=== PATIENT | female | born 1990 | race Caucasian/White ===

== ENCOUNTER 2017-05-21 12:28 | Emergency (ER) | payer MEDICAID, OTHER ==
[~2017-05-21] VITALS: Ht 160 cm; Wt 50.0 kg
[2017-05-21 17:50] VITALS: BP 118/67
[2017-05-21] MEDS ORDERED: IBUPROFEN 600MG TABLET PO ONE (18:45)
== END 2017-05-21 19:18 | disposition home or self-care (01) ==
LOC: ER 12:44
DX: M54.2 Cervicalgia (principal); M54.9 Dorsalgia, unspecified; M79.1 Myalgia; V49.9XXA Car occupant (driver) (passenger) injured in unspecified traffic accident, initial encounter; Y93.89 Activity, other specified; Y92.89 Other specified places as the place of occurrence of the external cause; Y99.8 Other external cause status
CPT/HCPCS: 99282